=== PATIENT | female | born 1985 | race Caucasian/White ===

== ENCOUNTER 2021-04-02 11:09 | Emergency (ER) | payer OTHER ==
--- NOTE | 2021-04-02 11:52 | ED Physician Documentation ---
History of Present Illness - Stated complaint Stated Complaint: FEMALE - Chief complaint Chief Complaint: UTI - Additonal information Additional information: 35-year-old female presents the emergency department for concerns of urinary tract infection. She reports that 3 days ago she began experiencing pain especially after urination. She did go to her primary care office and they completed a urinalysis and presumptively diagnosed her with a urinary tract infection and started her on Macrobid. However subsequent culture reportedly was negative. Despite the antibiotics she has persistent pain and it is now constant without any urinary effort. She did recently complete her menstrual cycle and states that she continues to have some vaginal spotting. Pt is sexually active in a monogamous relations. Hx of tubal ligation. No fevers, chills or flank pain. Does endorse some mild nausea. Review of Systems Constitutional: denies: Fever, Chills Eyes: reports: Loss of vision Ears: reports: Reviewed and negative Nose: reports: Reviewed and negative Throat: reports: Reviewed and negative Cardiac: denies: Chest pain / pressure, Palpitations Respiratory: denies: Dyspnea, Cough GI: reports: Nausea. denies: Abdominal Pain, Vomiting, Diarrhea, Hematemesis : reports: Dysuria, Discharge, Other (vaginal spotting). 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 - Present Medications Home Medications: Ambulatory Orders Medication Instructions Recorded Confirmed clonazePAM [Clonazepam] 0.5 mg PO TID PRN 01/15/15 01/15/15 HYDROcod/ACETAM 5/325 [[place] 5/325] 1 tab PO BID PRN #5 tablet 04/02/21 metroNIDAZOLE [Flagyl] 500 mg PO BID #14 tablet 04/02/21 - Allergies Allergies/Adverse Reactions: Allergies Allergy/AdvReac Type Severity Reaction Status Date / Time No Known Drug Allergies Allergy Verified 04/02/21 11:34 - Social History Does the pt smoke?: No Smoking Status: Never smoker Does the pt drink ETOH?: Yes Does the pt have substance abuse?: No PD ED PE EXPANDED - General General: Alert, No acute distress - Cardiac Cardiac: Regular Rate, Radial strong equal, Pedal strong equal, Cap refill < 2 sec - Respiratory Respiratory: Clear to ausultation blair. No: Distress, Labored - Abdomen Abdomen: Normal Bowel sounds, Tender to palpation (suprapubic; no guarding or rebound. no flank or CVA tenderness) - Female Female : Normal external, Cultures sent, Washer Cutter present (Dixie RN). No: Vaginal Bleeding, Vaginal Discharge, Dilated cervix, Adnexal Tenderness - Derm Derm: Normal color - Extremities Extremities: Normal. No: Deformity, Tenderness - Neuro Neuro: Alert and Oriented X 3, CNII-XII intact - GCS Eye Opening: Spontaneous Motor: Obeys Commands Verbal: Oriented Total: 15 Results - Vitals Vitals: Vital Signs - 24 hr 04/02/21 11:31 Temperature 36.5 C Heart Rate 82 Respiratory 18 Rate Blood Pressure 139/89 H O2 Saturation 99 Oxygen O2 Source Room air - Labs Labs: Microbiology 04/02/21 12:17 Wet Prep - Final Vaginal Laboratory Tests 04/02/21 04/02/21 04/02/21 11:27 11:55 11:55 WBC 4.4 L RBC 4.28 Hgb 10.5 L Hct 33.3 L MCV 77.8 L MCH 24.5 L MCHC 31.5 L RDW 15.4 H Plt Count 285 MPV 9.3 Neut # (Auto) 2.8 Lymph # (Auto) 1.0 L [place] # (Auto) 0.4 Eos # (Auto) 0.0 Baso # (Auto) 0.0 Absolute Nucleated RBC 0.00 Nucleated RBC % 0.0 Sodium 135 Potassium 3.6 Chloride 103 Carbon Dioxide 25 Anion Gap 7.0 BUN 11 Creatinine 0.7 Estimated GFR (MDRD) 96 Glucose 107 H Calcium 8.8 Urine Color YELLOW Urine Clarity CLEAR Urine pH 6.0 Ur Specific [place] 1.015 Urine Protein NEGATIVE Urine Glucose (UA) NEGATIVE Urine Ketones NEGATIVE Urine Occult Blood TRACE-INTA Urine Nitrite NEGATIVE Urine Bilirubin NEGATIVE Urine Urobilinogen 0.2 (NORMAL) Ur Leukocyte Esterase NEGATIVE Ur Microscopic Review NOT INDICATED Urine Culture Comments NOT INDICATED Urine HCG, Qual NEGATIVE - Rads (name of study) CT abd/pelvis w Radiology: Final report received (No acute intra-abdominal or pelvic process. Low-attenuation focus in the anterior liver. This could be secondary to local fat sparing. However a dedicated ultrasound on a nonemergent basis is recommended.) PD MEDICAL DECISION MAKING - ED course Complexity details: reviewed results, re-evaluated patient, considered differential, d/w patient ED course: 35-year-old female presents to the emergency department for evaluation of now 3 days of lower pelvic pain with associated dysuria. However after urination the pain does not improve. She was seen at her primary care office 2 days ago treated for presumptive urinary tract infection however subsequent culture did not reveal any infection. Screening urine today is inconsistent with infection. CBC shows no leukocytosis and basic metabolic panel without worrisome abnormalities. I did perform a pelvic exam and no findings consistent with PID. She is on the tail end of her menstrual cycle. A wet prep reveals about 20% clue cells but negative for yeast or trichomonas. GC is pending. Given her discomfort we did do a CT of the abdomen which did not reveal any worrisome findings. This time the cause of her lower pelvic pain and discomfort after urination is not clear though I am not suspicious of a urinary tract infection. I will treat the clue cells with a course of Flagyl. Patient is advised to have very close follow-up with her primary care provider. Return precautions were discussed for worsening symptoms, fever suddenly severe abdominal pain or uncontrolled vomiting. I am prescribing a short course of short-acting opioid pain medication for this patient. 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 I have discussed that the opioids are for short term therapy only, and will not be refilled from the ED. Departure - Departure Disposition: 01 Home, Self Care Clinical Impression: Pelvic pain, Bacterial vaginosis Condition: Stable Record reviewed to determine appropriate education?: Yes Instructions: ED Vaginosis Bacterial Follow-Up: Cuco Dixon MD [Primary Care Provider] - Prescriptions: metroNIDAZOLE [Flagyl] 500 mg PO BID #14 tablet HYDROcod/ACETAM 5/325 [[place] 5/325] 1 tab PO BID PRN #5 tablet PRN Reason: Pain Comments: ComfortChelsea you are seen in the emergency department today for lower pelvic pain after urination. As we discussed your screening labs do not reveal any worrisome findings. Your urine does not show an infection. Your CT did not show any worrisome abnormalities. One of the test that we did send was called a wet prep. This can check for conditions such as bacterial vaginosis which may cause the discomfort you are experiencing. You do have about 20% clue cells therefore I would like to treat you with antibiotic called Flagyl to see if this improves your symptoms. Please fill the prescription for the antibiotic begin taking twice daily for the next week. Do not drink alcohol while taking Flagyl. Return to the emergency department if you develop fevers, have worsening symp toms, uncontrolled vomiting suddenly severe or different abdominal pain. Please discuss this emergency department visit with your primary care provider. I am prescribing a short course of narcotic pain medication for you. These are potentially dangerous and addictive medications that should be used carefully. These medications may constipate you. Take an plgq-czk-xauzasj stool softener (docusate) twice daily with plenty of water while taking these medications. If you go 24 hours without a bowel movement, take dvhq-tsn-dydvezo miralax, per package instructions. Do not drink or drive while taking these medications. If you received narcotic or sedating medications while in the emergency department, do not drive for 24 hours. Store this medication in a safe, secure place and out of reach of children. It is a violation of federal law to give or sell this medication to another person or to use in a manner other than prescribed. The ED will not refill narcotic prescriptions, including prescriptions lost or stolen. To dispose of unwanted medications: 1. [facility] at [address] [place] in [place] has a medication drop box. They accept prescription medications (in pill form) Tuesday through Tuesday 9:00 a.m. to 5:00 p.m. 2. The [facility] [employer] accepts prescription medications (in pill form only) for disposal year round. Call for more information. 3. Contact the [facility] for the next [facility] sponsored prescription drug collection event. , [phone], or [phone]; Note that many narcotic pain relievers also contain Tylenol/acetaminophen. Please ensure that your total dose of acetaminophen from all sources does not exceed 3 g (3000 mg) per day.
[2021-04-02 11:53] LABS: BILIRUBIN,URINE NEGATIVE (NEGATIVE); GLUCOSE, URINE (UA) NEGATIVE (NEGATIVE); KETONES,URINE (UA) NEGATIVE (NEGATIVE); LEUKOCYTE ESTERASE, URINE NEGATIVE (NEGATIVE); NITRITE,URINE NEGATIVE (NEGATIVE); OCCULT BLOOD,URINE TRACE-INTA (NEGATIVE); PROTEIN,URINE NEGATIVE (NEGATIVE); UROBILINOGEN,URINE 0.2 (NORMAL) E.U./dL (NORMAL)
[2021-04-02 11:54] LABS: CLARITY,URINE CLEAR (CLEAR); HCG UR QUAL NEGATIVE
[2021-04-02 12:06] LABS: BASOPHILS % (AUTO) 0.9 %; EOSINOPHILS % (AUTO) 0.5 %; HCT - HEMATOCRIT 33.3 % (37.0-47.0); HGB - HEMOGLOBIN 10.5 g/dL (12.0-16.0); LYMPHOCYTES % (AUTO) 23.9 %; MEAN CORPUSCULAR HEMOGLOBIN 24.5 pg (27.0-31.0); MEAN CORPUSCULAR HGB CONC 31.5 g/dL (32.0-36.0); MEAN CORPUSCULAR VOLUME 77.8 fL (81.0-99.0); MEAN PLATELET VOLUME 9.3 fL (7.9-10.8); MONOCYTES # (AUTO) 0.4 10^3/uL (0.0-1.0); MONOCYTES % (AUTO) 9.6 %; NEUTROPHILS # (AUTO) 2.8 10^3/uL (1.5-6.6); NEUTROPHILS % (AUTO) 64.9 %; PLT - PLATELET COUNT 285 10^3/uL (130-450); RED BLOOD COUNT 4.28 10^6/uL (4.20-5.40); RED CELL DISTRIBUTION WIDTH 15.4 % (12.0-15.0); WHITE BLOOD COUNT 4.4 x10^3/uL (4.8-10.8)
[2021-04-02 12:09] LABS: CALCIUM 8.8 mg/dL (8.5-10.3); CREATININE 0.7 mg/dL (0.4-1.0); POTASSIUM 3.6 mmol/L (3.5-5.0)
[2021-04-02] MEDS ORDERED: IOVERSOL 320 100 ML VIAL IVP ONE ×2 (12:53→14:26)
--- NOTE | 2021-04-02 14:00 | CT Report ---
PROCEDURE: Abdomen/Pelvis W INDICATIONS: dysuria; lower pelvic pain CONTRAST: IV CONTRAST: Optiray 320 ml: 100 PO CONTRAST: *NO PO CONTRAST TECHNIQUE: After the administration of intravenous contrast, 5 mm thick sections acquired from the diaphragms to the symphysis. 5 mm thick coronal and sagittal reformats were acquired. For radiation dose reducti on, the following was used: automated exposure control, adjustment of mA and/or kV according to aaron ent size. COMPARISON: None. FINDINGS: Image quality: Excellent. ABDOMEN: Lung bases: Lung bases are clear. Heart size is normal. Solid organs: Liver is enlarged. Low attenuation focus is present in the anterior lobe. Gallbladder is unremarkable. Biliary system is non dilated. Pancreas enhances normally. No adrenal nodules. Kidneys demonstrate normal size and enhancement, without hydronephrosis. Peritoneum and bowel: Bowel loops demonstrate normal wall thickness and caliber. No free fluid or a ir. Nodes and vessels: No retroperitoneal or mesenteric adenopathy by size criteria. Aorta and inferior vena cava are normal in size. Miscellaneous: No ventral hernias. PELVIS: Genitourinary: Bladder wall thickness is normal. Miscellaneous: No inguinal hernias or adenopathy. Bones: No suspicious bony lesions. No vertebral body compression fractures. IMPRESSION: 1. No acute intra-abdominal or pelvic process. 2. Low attenuation focus in the anterior liver. This could be secondary to focal fat/sparing. Hughes sarah, no priors are available for comparison. Further evaluation with dedicated ultrasound on a nonem ergent basis is recommended for further evaluation. Reviewed by: Shagufta Treadwell MD on 04/02/2021 1:58 PM PDT Approved by: Shagufta Treadwell MD on 04/02/2021 1:58 PM PDT Station ID: [id number]
[2021-04-02 14:28] VITALS: BP 115/77
[2021-04-02 21:09] LABS: CHLAMYDIA TRACHOMATIS DNA NEGATIVE (NEGATIVE); NEISSERIA GONORRHOEAE DNA NEGATIVE (NEGATIVE); TRICHOMONAS VAGINALIS DNA NEGATIVE (NEGATIVE)
== END 2021-04-02 14:45 | disposition home or self-care (01) ==
LOC: ED 11:09
DX: N76.0 Acute vaginitis (principal); R10.2 Pelvic and perineal pain
CPT/HCPCS: 36415; 74177; 80048; 81003; 81025; 85025; 87210; 87491; 87591; 87661; 99284; Q9967; 81001; 87086

== ENCOUNTER 2021-04-04 11:21 | Emergency (ER) | payer OTHER ==
[2021-04-04 11:58] LABS: BILIRUBIN,URINE NEGATIVE (NEGATIVE); GLUCOSE, URINE (UA) NEGATIVE (NEGATIVE); KETONES,URINE (UA) NEGATIVE (NEGATIVE); LEUKOCYTE ESTERASE, URINE TRACE (NEGATIVE); NITRITE,URINE NEGATIVE (NEGATIVE); OCCULT BLOOD,URINE TRACE-LYSE (NEGATIVE); PROTEIN,URINE TRACE mg/dL (NEGATIVE); UROBILINOGEN,URINE 0.2 (NORMAL) E.U./dL (NORMAL)
[2021-04-04 11:59] LABS: CLARITY,URINE CLEAR (CLEAR)
[2021-04-04 12:00] LABS: HCG UR QUAL NEGATIVE
[2021-04-04 12:14] LABS: BACTERIA,URINE Few /HPF (None Seen); MUCUS,URINE Marked Strands; SQUAMOUS EPITHELIAL CELL,UR MANY Squamous (<= Few)
--- NOTE | 2021-04-04 13:09 | ED Physician Documentation ---
PD HPI ABD PAIN - Stated complaint Stated Complaint: FEMALE - Chief complaint Chief Complaint: Abd Pain - History obtained from History obtained from: Patient - Additional information Additional information: Previously healthy 35-year-old woman has had about 4 days of painful dysuria with suprapubic pain. She was seen at a walk-in clinic and started on Macrobid but reportedly the subsequent culture was negative. Still is on Macrobid and came to this ED 2 days ago where she had a very complete work-up showing basically normal blood work with mild lymphopenia, negative STD testing, clue cells on pelvic exam but less than 20%, and basically normal CT of the abdomen pelvis. Despite taking Flagyl for the last 2 days she is no better. 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 - Present Medications Home Medications: Ambulatory Orders Medication Instructions Recorded Confirmed clonazePAM [Clonazepam] 0.5 mg PO TID PRN 01/15/15 01/15/15 HYDROcod/ACETAM 5/325 [[place] 5/325] 1 tab PO BID PRN #5 tablet 04/02/21 metroNIDAZOLE [Flagyl] 500 mg PO BID #14 tablet 04/02/21 Doxycycline Hyclate 100 mg PO BID #14 tab 04/04/21 Phenazopyridine HCl [Pyridium] 200 mg PO TID PRN #6 tablet 04/04/21 - Allergies Allergies/Adverse Reactions: Allergies Allergy/AdvReac Type Severity Reaction Status Date / Time No Known Drug Allergies Allergy Verified 04/04/21 11:38 - Social History Does the pt smoke?: No Smoking Status: Never smoker Does the pt drink ETOH?: Yes Does the pt have substance abuse?: No - POLST Patient has POLST: No PD ED PE NORMAL - Vitals Vital signs reviewed: Yes - General General: Alert and oriented X 3, No acute distress - Abdomen Abdomen: Normal bowel sounds, Soft, Non tender - Derm Derm: Normal color, Warm and dry, No rash - Neuro Neuro: Alert and oriented X 3, Normal speech Results - Vitals Vitals: Vital Signs - 24 hr 04/04/21 11:33 Temperature 36.3 C L Heart Rate 89 Respiratory 16 Rate Blood Pressure 120/72 O2 Saturation 100 Oxygen O2 Source Room air - Labs Labs: Laboratory Tests 04/04/21 04/04/21 11:48 11:48 Urine Color DARK YELLOW Urine Clarity CLEAR Urine pH 6.0 Ur Specific [place] 1.025 Urine Protein TRACE Urine Glucose (UA) NEGATIVE Urine Ketones NEGATIVE Urine Occult Blood TRACE-LYSE Urine Nitrite NEGATIVE Urine Bilirubin NEGATIVE Urine Urobilinogen 0.2 (NORMAL) Ur Leukocyte Esterase TRACE H Urine RBC 6-10 H Urine WBC 6-10 H Ur Squamous Epith Cells MANY Squamous H Urine Bacteria Few Urine Mucus Marked Strands Urine Culture Comments NOT INDICATED Urine HCG, Qual NEGATIVE PD MEDICAL DECISION MAKING - ED course ED course: 35-year-old woman with stabbing dysuria, recent work-up reviewed. Benign exam now. We will trial doxycycline and Pyridium pending follow-up. Departure - Departure Disposition: 01 Home, Self Care Clinical Impression: Dysuria Condition: Good Record reviewed to determine appropriate education?: Yes Instructions: ED Dysuria Uncertain Cause Prescriptions: Doxycycline Hyclate 100 mg PO BID #14 tab Phenazopyridine HCl [Pyridium] 200 mg PO TID PRN #6 tablet PRN Reason: dysuria Comments: Today you were seen for persistent stabbing dysuria and pelvic pain in the setting of mildly infected appearing urine and a negative work-up from the other day. I would stop the nitrofurantoin and metronidazole. Trial a new antibiotic. If this is still unhelpful you will need to follow-up with a urologist for evaluation and potential cystoscopy. Return if worsening. Prescription sent electronically to [facility]
[2021-04-04] MEDS ORDERED: DOXYCYCLINE 100 MG TABLET PO STA ×2 (13:12→13:14)
[2021-04-04] MEDS ORDERED: PHENAZOPYRIDINE 100 MG TABLET PO STA ×2 (13:12→13:14)
[2021-04-04 13:19] VITALS: BP 111/72
== END 2021-04-04 13:21 | disposition home or self-care (01) ==
LOC: ED 11:21
DX: R30.0 Dysuria (principal); R10.2 Pelvic and perineal pain
CPT/HCPCS: 51798; 81001; 81025; 99283; A9270; 87086

== ENCOUNTER 2022-09-11 14:20 | Outpatient (CLI) | payer OTHER | END 2022-09-11 23:59 | disposition EMS.NT | LOC: EMS 14:20 | DX: F41.9 Anxiety disorder, unspecified (principal); R06.02 Shortness of breath; R00.0 Tachycardia, unspecified ==